=== PATIENT | male | born 1965 | race Caucasian/White ===

== ENCOUNTER 2018-09-25 12:33 | Emergency (ER) | payer MEDICAID, MEDICARE ==
[~2018-09-25] VITALS: Ht 177.8 cm; Wt 83.0 kg
[~2018-09-25 12:33] MED LIST: CLIN300C8 PO; CYCL5TAB PO; FLUT1AER INH; LISI10TA2 PO; TERA1CAP3 PO; UMEC62.5 INH
[2018-09-25 13:02] VITALS: BP 128/81
[2018-09-25] MEDS ORDERED: ALBUTEROL/IPRATROPIUM 2.5MG/0.5MG, 3 ML ONE (13:25)
[2018-09-25] MEDS ORDERED: ALBUTEROL/IPRATROPIUM 2.5MG/0.5MG, 3 ML NEB ONE (13:30)
[2018-09-25 13:55] LABS: RAPID INFLUENZA A Negative (Negative); RAPID INFLUENZA B Negative (Negative)
== END 2018-09-25 14:03 | disposition home or self-care (01) ==
LOC: ED 13:51
DX: J44.1 Chronic obstructive pulmonary disease with (acute) exacerbation (principal); B34.9 Viral infection, unspecified; I10 Essential (primary) hypertension; E11.9 Type 2 diabetes mellitus without complications
CPT/HCPCS: 71046; 87400; 94640; 99284; J7512; J7620

== ENCOUNTER → 2020-02-22 | Outpatient (CLI) | payer MEDICARE | END | disposition home or self-care (01) | LOC: CFH 13:22 | PROVIDERS: ATTEND Internal Medicine | DX: Z12.2 Encounter for screening for malignant neoplasm of respiratory organs (principal); Z87.891 Personal history of nicotine dependence | CPT/HCPCS: G0297 ==

== ENCOUNTER 2021-03-08 09:44 | Outpatient (CLI) | payer MEDICARE ==
[~2021-03-08 09:44] MED LIST changes: -CLIN300C8 PO; +CLIN300C9 PO; +LISI10TA19 PO; -LISI10TA2 PO
== END 2021-03-08 23:59 | disposition home or self-care (01) ==
LOC: CFH 09:44
PROVIDERS: ATTEND Internal Medicine
DX: Z12.2 Encounter for screening for malignant neoplasm of respiratory organs (principal); I25.10 Atherosclerotic heart disease of native coronary artery without angina pectoris; J84.10 Pulmonary fibrosis, unspecified; Z87.891 Personal history of nicotine dependence
CPT/HCPCS: 71271